=== PATIENT | male | born 1960 | race Hispanic/Latino ===

== ENCOUNTER 2017-11-30 08:12 | Day surgery (SDC) | payer MEDICAID ==
[~2017-11-30] VITALS: Ht 157.5 cm; Wt 53.8 kg
[~2017-11-30 08:12] MED LIST: ALEN70TA47 PO; ASPI-555 PO; BRIM5DRO OP; CARV6.25 PO; CLOP75TA32 PO; FURO40TA5 PO; HUM10VIA6 SQ; INSU100V12 SQ; LEVO88TA7 PO; LORA1TAB3 PO; MYCO250C7 PO; PANT40TA PO; PILO1OS OU; PRED5TAB PO; SIMV40TA5 PO; SODIUM CHLORIDE 0.9% 1000ML 1,000 ML IV ONE; TACR1CAP10 PO; TAMS0.4C32 PO
[2017-11-30 09:01] VITALS: BP 107/55
[2017-11-30 10:00] VITALS: BP 105/41
== END 2017-11-30 10:45 | disposition home or self-care (01) ==
LOC: DAH 08:12
PROVIDERS: ATTEND Internal Medicine Gastroenterology
DX: K29.50 Unspecified chronic gastritis without bleeding (principal); E03.9 Hypothyroidism, unspecified; E78.5 Hyperlipidemia, unspecified; M81.0 Age-related osteoporosis without current pathological fracture; F41.9 Anxiety disorder, unspecified; E11.39 Type 2 diabetes mellitus with other diabetic ophthalmic complication; H40.9 Unspecified glaucoma; Z82.49 Family history of ischemic heart disease and other diseases of the circulatory system; Z94.0 Kidney transplant status; Z95.0 Presence of cardiac pacemaker; Z95.5 Presence of coronary angioplasty implant and graft; Z90.49 Acquired absence of other specified parts of digestive tract; Z98.890 Other specified postprocedural states; Z79.4 Long term (current) use of insulin; Z79.899 Other long term (current) drug therapy; Z88.0 Allergy status to penicillin
CPT/HCPCS: 43239; 82948 ×2; 88305; 88312; A4606; J7030